=== PATIENT | male | born 1975 | race Caucasian/White ===

== ENCOUNTER → 2020-12-28 | Emergency (ER) | payer OTHER ==
[~2020-12-28] VITALS: Ht 170.2 cm; Wt 80.7 kg
[~2020-12-28] MED LIST: CIPRO500 MG PO; PERCOCET 5-3251 EACH PO
== END | disposition home or self-care (01) ==
LOC: ER 13:08
DX: S81.821A Laceration with foreign body, right lower leg, initial encounter (principal); W25.XXXA Contact with sharp glass, initial encounter; Y93.89 Activity, other specified; Y92.89 Other specified places as the place of occurrence of the external cause; Y99.8 Other external cause status

== ENCOUNTER → 2021-02-14 | Emergency (ER) | payer OTHER ==
[~2021-02-14] VITALS: Ht 170.2 cm; Wt 81.6 kg
[~2021-02-14] MED LIST changes: +AMOX-CLAV 875-1 EACH PO; +INTESTINEX680 M1 PO; +MUPIROCIN1 G1 TOP
== END | disposition home or self-care (01) ==
LOC: ER 09:00
DX: S80.811A Abrasion, right lower leg, initial encounter (principal); W54.0XXA Bitten by dog, initial encounter; Y93.89 Activity, other specified; Y92.830 Public park as the place of occurrence of the external cause; Y99.8 Other external cause status